=== PATIENT | female | born 1955 | race Caucasian/White ===

== ENCOUNTER → 2020-01-12 | Outpatient (CLI) | payer MEDICARE ==
[~2020-01-12] MED LIST: ALEN70TA6 PO; ASCO500C PO; DOCU-109 PO; DOCU-150 PO; GABA300C18 PO; HYDR-3164 PO; IBUP-1060 PO; LEVO100T5 PO; LEVO50TA5 PO; LOVA40TA2 PO; MECO10005 PO; METF-658 PO; METH-38 PO; OMEG1CAP50 PO; OMEP20TA8 PO; TIZA4TAB2 PO; TRAM100T2 PO
[2020-01-12 11:49] LABS: BASO % 1 % (0-3); EOS # 0.2 x10^3/uL (0.0-0.7); EOS % 4 % (0-3); LYMPH # 2.2 x10^3/uL (1.0-4.8); LYMPH % 39 % (24-48); MEAN CORPUSCULAR HEMOGLOBIN 32 pg (25-35); MEAN CORPUSCULAR HGB CONC 34 g/dL (31-37); MEAN CORPUSCULAR VOLUME 94 fL (79-100); MONO # 0.4 x10^3/uL (0.0-1.1); MONO % 7 % (0-9); NEUT # 2.8 x10^3/uL (1.8-7.7); NEUT % 49 % (31-73); PLATELET COUNT 222 x10^3/uL (140-400); RED BLOOD COUNT 4.03 x10^6/uL (3.50-5.40); RED CELL DISTRIBUTION WIDTH 13.2 % (11.5-14.5); WHITE BLOOD COUNT 5.7 x10^3/uL (4.0-11.0)
[2020-01-12 11:55] LABS: ALBUMIN 3.8 g/dL (3.4-5.0); ALBUMIN/GLOBULIN RATIO 1.3 (1.0-1.7); CALCIUM 9.3 mg/dL (8.5-10.1); CREATININE 0.9 mg/dL (0.6-1.0); GFR 62.6; POTASSIUM 4.9 mmol/L (3.5-5.1); TOTAL BILIRUBIN 0.2 mg/dL (0.2-1.0); TOTAL PROTEIN 6.7 g/dL (6.4-8.2)
[2020-01-13 02:40] LABS: HEMOGLOBIN A1C 5.8 % (4.8-5.6)
== END | disposition home or self-care (01) ==
LOC: SURGPAT 11:03
PROVIDERS: ATTEND Neurological Surgery
DX: Z01.818 Encounter for other preprocedural examination (principal); Z11.59 Encounter for screening for other viral diseases; M47.26 Other spondylosis with radiculopathy, lumbar region; Z79.899 Other long term (current) drug therapy
CPT/HCPCS: 36415; 80053; 83036; 85025; 87641; U0003

== ENCOUNTER 2020-01-18 08:22 | Day surgery (SDC) | payer MEDICARE ==
--- NOTE | 2020-01-17 12:31 | HP ---
ADMIT DATE: 01/18/2020. DATE OF SURGERY: 01/18/2020. HISTORY OF PRESENT ILLNESS: The patient is a pleasant 64-year-old woman who is having difficulty with low back and right leg pain. That pain tends to radiate to the right buttock, posterior thigh and leg and foot. She noticed pain in the right inguinal region. She says the pain can be described as a burning pain. There is also aching pain. This problem started in 12/2018. She said initially it was extremely severe, but has improved slightly since then. She rates her pain as a 5/10 currently. She says it is constant. Changing positions, does help her. She takes gabapentin, tramadol, tizanidine, ibuprofen. She has had chiropractic treatment as well as acupuncture. She has also undergone 2 epidural steroid injections and transforaminal injection without significant help. She also had 6 weeks of home health physical therapy with no significant improvement. PAST MEDICAL HISTORY: Anemia, arthritis, headaches, osteoporosis, thyroid disease, shingles, diabetes. PAST SURGICAL HISTORY: Hysterectomy, broken right hand. FAMILY HISTORY: Alzheimer disease, diabetes, heart disease, hypertension, SD, headache, spine problems. SOCIAL HISTORY: She is retired. Single. She is a nonsmoker and drinks alcohol 1-2 times per month. ALLERGIES: BACTRIM, FLAGYL, AND PHENERGAN. CURRENT MEDICATIONS: She currently, takes gabapentin, tramadol, tizanidine, ibuprofen, omeprazole, lovastatin, metformin, levothyroxine, alendronate, Linzess, calcium with vitamin D, fish oil, vitamin C, vitamin B12, stool softener and aspirin. REVIEW OF SYSTEMS: A 12-point review of systems was obtained and is noncontributory except that mentioned above. PHYSICAL EXAMINATION: NEUROSURGERY EXAMINATION: GENERAL APPEARANCE: Alert, pleasant, no acute distress. HEAD: Normocephalic and atraumatic. SKIN: Warm and dry. MUSCULOSKELETAL: Lumbar paraspinal muscle bulk is normal, restricted range of motion of lumbar spine, imqi-yc-bpnckwld tenderness of lower lumbar spine with palpation, normal range of motion of the lower extremities bilaterally. EXTREMITIES: No clubbing, cyanosis, or edema. NEUROLOGIC: Alert and oriented x 3, normal recent and remote memory. Strength 5/5 in bilateral lower extremities, sensory was intact to light touch in bilateral lower extremities. Reflexes are present and symmetric in lower extremities bilaterally, positive straight leg raising on the right, negative straight leg raising on the left, normal gait. IMAGING: I reviewed a lumbar MRI scan. The primary abnormality is at L4-L5 on the right where there is hypertrophic facet with significant subarticular/lateral recess narrowing. This does appear to impinge on the right L5 nerve root. ASSESSMENT/ PLAN: The patient has significant radiculopathy. My recommendation is that she consider microsurgery. She would like to proceed. We will make the arrangements. I did discuss the surgery and the risks and expected postoperative course with her. She understands. BRIDGER EDWARDS MD DR: BEREKET/nael JOB#: [id number] / [id number] KAILEE
[~2020-01-18] VITALS: Ht 152.4 cm; Wt 56.2 kg
[~2020-01-18 08:22] MED LIST changes: +BACITRACIN 50,000 UNIT in IV NORMAL SALINE 1000ML BAG 1,000 ML IRR ONE; +BUPIVACAINE-EPI 0.5%-1:200000 MPF 30 ML VIAL. ONE; -DOCU-109 PO; +GELATIN SPONGE SIZE 100. ONE; -HYDR-3164 PO; +HYDROmorphone 2 MG/ML VIAL IV PRN; +IV RINGERS,LACTATED 1000ML 1,000 ML IV SCH; +KETOROLAC 60 MG/2 ML VIAL. ONE; +LIDOCAINE 1% PF 2 ML VIAL. ID PRN; -METH-38 PO; +MORPHINE SULFATE 2 MG/ML VIAL. IV PRN; +ONDANSETRON PF 4 MG/2 ML VIAL. IV PRN; +PROCHLORPERAZINE 10 MG/2 ML VIAL. IV PRN; +THROMBIN TOPICAL 20,000 UNIT SPRAY.SYRN KIT TP ONE; +ceFAZolin 2GM PREMIX 2 GM/50 ML BAG IV ONE; +fentaNYL PF VIAL 100 MCG/2 ML VIAL IV PRN
[2020-01-18] MEDS ORDERED: PROPOFOL 10 MG/ML (20ML) VIAL. IV ONE (11:22)
[2020-01-18] MEDS ORDERED: PHENYLEPHRINE in 0.9% NACL PF 1 MG/10 ML SYRINGE. IV ONE (11:23)
[2020-01-18] MEDS ORDERED: ePHEDrine PF IN SALINE 50 MG/10 ML SYRINGE. IV ONE ×2 (11:23→13:41)
[2020-01-18] MEDS ORDERED: DEXAMETHASONE SOD PHOS 20 MG/5 ML VIAL. ONE (11:23)
[2020-01-18] MEDS ORDERED: ONDANSETRON PF 4 MG/2 ML VIAL. ONE (11:23)
[2020-01-18] MEDS ORDERED: LIDOCAINE 2% PF 5 ML VIAL. ONE (11:23)
[2020-01-18] MEDS ORDERED: ROCURONIUM 50 MG/5 ML VIAL. ONE (11:24)
[2020-01-18] MEDS ORDERED: fentaNYL PF VIAL 100 MCG/2 ML VIAL ONE ×2 (11:25→14:06)
[2020-01-18] MEDS ORDERED: MIDAZOLAM HCL/PF 2 MG/2 ML VIAL. ONE (11:25)
[2020-01-18] MEDS ORDERED: PROPOFOL 50 ML IV ONE (11:27)
[2020-01-18] MEDS ORDERED: REMIFENTANIL 2 MG VIAL. IV ONE (11:27)
[2020-01-18] MEDS ORDERED: PHENYLEPHRINE 10 MG/ML VIAL. ONE ×2 (12:33)
[2020-01-18] MEDS ORDERED: GLYCOPYRROLATE 1 MG/5 ML VIAL. ONE (13:14)
[2020-01-18] MEDS ORDERED: NEOSTIGMINE METHYLSULFATE 5 MG/5 ML SYRINGE. ONE (13:14)
[2020-01-18] MEDS ORDERED: SEVOFLURANE 61 TO 120 MINUTES. IH ONE (13:14)
[2020-01-18] MEDS ORDERED: METH-38 PO (13:28)
[2020-01-18] MEDS ORDERED: DOCU-109 PO (13:28)
[2020-01-18] MEDS ORDERED: HYDR-3164 PO (13:28)
--- NOTE | 2020-01-18 13:30 | DISCH ---
DISCHARGE INSTRUCTIONS Condition on Discharge Condition on Discharge: Stable Activity After Discharge Activity Instructions for Disc: Activity as tolerated, Avoid exertion Other activity instructions: no driving for a week Bathing Instructions: Shower-keep dressing dry Lifting Instructions after Dis: No heavy lifting, No pulling or pushing, Do not lift >10 pounds Diet after Discharge Additional Diet Restrictions: resume home diet Wound Incision Care Wound/Incision Care: Ice to area for comfort Other wound/incision instructi: may remove dressing in 48 hours if dry then may shower, no soaking Contacting the after DC Call your doctor for: Concerns you may have Follow-Up Follow up with: Dr. Edwards's nurse in 2 weeks [phone] BRIDGER EDWARDS MD Jan 18, 2020 13:30
--- NOTE | 2020-01-18 13:33 | OP ---
DATE OF SURGERY: 01/18/2020 PREOPERATIVE DIAGNOSIS: Lateral recess and subarticular narrowing with lumbar radiculopathy, right L4-L5. POSTOPERATIVE DIAGNOSIS: Lateral recess and subarticular narrowing with lumbar radiculopathy, right L4-L5. OPERATION PERFORMED: Hemilaminotomy with microdecompression of dura and nerve root, L4-L5. The operation was done with EMG monitoring, fluoroscopy, microscopic dissection, and SSEP monitoring. SURGEON: Hayden Edwards M.D. MODEL [employer]: MAYCOL Ruffin assisted with the surgery. She assisted with the exposure, the microdecompression as well as the closure. OPERATIVE INDICATIONS: The patient is a pleasant 64-year-old who developed intractable back and right leg pain which failed conservative measures and on imaging studies, was found to have the above-mentioned findings. I recommended lumbar microsurgery. She understood the surgery and risks, she wished to go ahead. DESCRIPTION OF PROCEDURE: Following general endotracheal anesthesia, the patient was positioned prone on the Arjun frame. Her lumbar region was prepped and draped in the standard fashion. HEIDI hose and AV impulse boots were applied for DVT prophylaxis. The microscope was draped. Fluoroscopy was draped and brought into field. Monitoring was established. Ancef 2 grams was given less than 1 hour prior to initiation of the surgery. Using fluoroscopic guidance, a midline incision was made over the L4-L5 interspace, dissected down through skin and subcutaneous tissue, reflected the paraspinal muscles and placed a Brewton microdisk retractor. I brought in the high speed air drill and the microscope and using microscopic technique, I burred down a generous hemilaminotomy. I trimmed away ligamentum flavum, peeled this away and exposed the dura and then more laterally, there was considerable scarring on the dura, which I then gently microscopically dissected off the dura. I exposed the exiting L5 root, which was tightly compressed with scar and thickened ligaments and as I worked, I was able to fully decompress this entire region. I worked superiorly, inferiorly, laterally and I assured myself the root was very well decompressed. The disc was flat, no discectomy was warranted. I irrigated copiously with antibiotic solution. I did use small amounts of bone wax throughout the operation. At this point, I had an excellent decompression. I irrigated copiously, removed the retractor, obtained hemostasis in the muscle and I closed the wound in layers with absorbable sutures. The skin was closed with 4-0 subcuticular stitch and I was quite pleased with the surgery. HAYDEN EDWARDS MD DR: BEREKET/nael JOB#: [id number] / [id number] KAILEE
[2020-01-18] MEDS ORDERED: HYDROcodone/APAP 5/325MG 1 TAB TABLET PO ONE (14:00)
[2020-01-18] MEDS: fentaNYL PF VIAL 100 MCG/2 ML VIAL IV PRN ×2 (14:09→14:18)
[2020-01-18 14:35] VITALS: BP 162/78
--- NOTE | 2020-01-22 18:06 | PATHOLOGY ---
[facility] Accession Number: [id number] . 01 Material submitted: . vertebral column - LUMBAR DECOMPRESSION . 01 Clinical history: . Lumbar spondylosis with radiculopathy. . 02 Diagnosis: Segments of fibrocartilaginous, fibroadipose, and skeletal muscle tissue and bone, lumbar decompression: - Degenerative changes of fibrocartilaginous tissue. ([facility]:jagjit; 01/22/2020) [facility] 01/22/2020 1616 Local . 02 Comment: There is no evidence of an acute inflammatory process or malignancy. (JPM:jagjit; 01/22/2020) . 02 Electronically signed: . Wolfgang Wilder MD, Pathologist NPI- [id number] . 01 Gross description: . Received in formalin labeled "Ford, Nabila, lumbar decompression" is a 3.0 x 2.5 x 0.4 cm aggregate of cabrales-white rubbery and gritty soft tissue and bone fragments. The specimen is submitted entirely in cassette A1 following decalcification. ([facility]; 01/21/2020) [facility] 01/22/2020 1615 Local . 02 Pathologist provided ICD-10: M51.36 . 02 CPT . 430708, [id number] Specimen Comment: A courtesy copy of this report has been sent to [phone] Specimen Comment: [id number] Specimen Comment: Report sent to / DR VAUGHN Performed at: 01 [facility] [address], [place] [id number] MD Jose Antonio Parks MD Phone: [phone] Performed at: 02 [facility] [id number] MD Wolfgang Wilder MD Phone: [phone]
== END 2020-01-18 15:55 | disposition home or self-care (01) ==
LOC: SURG 08:22 → EDUNIT# 12:15 → SURG 15:55
PROVIDERS: ATTEND Neurological Surgery
DX: M48.061 Spinal stenosis, lumbar region without neurogenic claudication (principal); M54.16 Radiculopathy, lumbar region; D64.9 Anemia, unspecified; M19.90 Unspecified osteoarthritis, unspecified site; M81.0 Age-related osteoporosis without current pathological fracture; E11.9 Type 2 diabetes mellitus without complications; Z98.890 Other specified postprocedural states; Z83.3 Family history of diabetes mellitus; Z82.49 Family history of ischemic heart disease and other diseases of the circulatory system; Z79.899 Other long term (current) drug therapy
CPT/HCPCS: 63047; 82962; 88304; 88311; 97162; 97530; A7015; J0690; J1100; J1885; J2250; J2370; J2405; J2704; J2710; J3010; J3490; J7030; 76000